=== PATIENT | female | born 1975 | race Caucasian/White ===

== ENCOUNTER 2017-01-16 10:01 | Emergency (ER) | payer SELFPAY ==
[~2017-01-16] VITALS: Ht 165.1 cm; Wt 119.3 kg
[2017-01-16] MEDS ORDERED: SODIUM CHLORIDE 0.9% 1,000 ML IV ONE ×2 (10:21→12:00)
[2017-01-16 11:09] LABS: BLOOD UREA NITROGEN 13 mg/dL (7-18)
[2017-01-16 11:12] LABS: ASPARTATE AMINO TRANSFERASE 10 U/L (15-37)
[2017-01-16 11:39] LABS: DIFF TOTAL CELLS COUNTED 100 CELL DIFF
[2017-01-16 11:40] LABS: HYPOCHROMIA 2+; MICROCYTOSIS 2+; POLYCHROMASIA 1+; VERIFY COUNTS? YES
[2017-01-16 11:41] LABS: ANISOCYTOSIS 2+
[2017-01-16] MEDS ORDERED: SODIUM CHLORIDE FLUSH 10ML SYR IVF ONE (12:00)
[2017-01-16] MEDS ORDERED: MORPHINE SULFATE 4 MG/ML, 1ML IVPush PRN (12:00)
[2017-01-16] MEDS ORDERED: ONDANSETRON 2MG/ML, 2ML IVPush ONE (12:00)
[2017-01-16] MEDS ORDERED: SODIUM CHLORIDE 0.9% 1,000ML IVBOLUS ONE (12:00)
[2017-01-16] MEDS ORDERED: ONDANSETRON 2MG/ML, 2ML ONE (12:40)
[2017-01-16] MEDS ORDERED: MORPHINE SULFATE 4 MG/ML, 1ML ONE (12:40)
[2017-01-16 12:46] VITALS: BP 120/77
== END 2017-01-16 15:24 | disposition home or self-care (01) ==
LOC: ED 11:32
DX: N30.00 Acute cystitis without hematuria (principal); D50.0 Iron deficiency anemia secondary to blood loss (chronic); N83.292 Other ovarian cyst, left side; E66.9 Obesity, unspecified; F17.200 Nicotine dependence, unspecified, uncomplicated; Z98.84 Bariatric surgery status
CPT/HCPCS: 36415; 70450; 71010; 76830; 80053; 81001; 83605; 83690; 83880; 84145; 85025; 85610; 85730; 87077; 87086; 87186; 93005; 96361; 96374; 96375; 99285; J2405; J7030

== ENCOUNTER 2021-01-21 22:22 | Emergency (ER) | payer MEDICAID ==
[~2021-01-21] VITALS: Ht 165.1 cm; Wt 100.0 kg
[~2021-01-21 22:22] MED LIST: AMOX1TAB12 PO; APIX5TAB PO; CEPH250T PO; ENOX120S4 SQ; GABA-826 PO; L.AC1CAP6 PO; NICO-485 TD; THIA100T67 PO; WARF7.5T PO-COUM
[2021-01-21 23:03] LABS: ALANINE AMINOTRANSFERASE 124 U/L (12-78); ALBUMIN 2.5 g/dL (3.4-5.0); ANION GAP 11 mmol/L (5-15); CALCIUM 8.6 mg/dL (8.5-10.1); CHLORIDE 102 mmol/L (98-107); CREATININE 0.74 mg/dL (0.55-1.02)
[2021-01-21 23:06] LABS: ALKALINE PHOSPHATASE 287 U/L (45-117); BASOPHILS % (AUTO) 1 % (0-1); BILIRUBIN,TOTAL 2.1 mg/dL (0.2-1.0); EOSINOPHILS % (AUTO) 4 % (1-7); LYMPHOCYTES % (AUTO) 20 % (22-44); MEAN CORPUSCULAR HEMOGLOBIN 33.7 pg (27.0-34.8); MEAN CORPUSCULAR HGB CONC 33.2 g/dL (32.4-35.8); MEAN PLATELET VOLUME 8.8 fL (7.4-10.4); MONOCYTES % (AUTO) 6 % (2-9); NEUTROPHILS % (AUTO) 69 % (42-75); PLATELET COUNT 285 x10^3/uL (130-400); RED BLOOD COUNT 3.75 x10^6/uL (3.82-5.3); RED CELL DISTRIBUTION WIDTH 20.3 % (9.6-15.2); TOTAL PROTEIN 6.2 g/dL (6.4-8.2)
[2021-01-21 23:23] LABS: <PLATELET ESTIMATE> ADEQUATE; <PLT MORPHOLOGY> NORMAL PLT MORPH; ANISOCYTOSIS 1+; POLYCHROMASIA 1+; TARGET CELLS 1+
[2021-01-22] MEDS ORDERED: KETOROLAC 60 MG/2 ML ONE (00:08)
[2021-01-22] MEDS ORDERED: KETOROLAC 60 MG/2 ML IM ONE (00:30)
[2021-01-22 01:50] VITALS: BP 133/78
--- NOTE | 2021-01-22 01:50 | NUR ---
BREAK RN: Patient given discharge instructions and they have confirmed that they understand the instructions. Patient ambulatory with steady gait. NAD, all questions answered appropriately, denies additional needs at this time. No personal belongings left in room after discharge.
== END 2021-01-22 01:51 | disposition home or self-care (01) ==
LOC: ED 23:30
DX: I89.0 Lymphedema, not elsewhere classified (principal); R94.5 Abnormal results of liver function studies; F17.210 Nicotine dependence, cigarettes, uncomplicated
CPT/HCPCS: 36415; 80053; 85025; 93970; 96372; 99284; J1885

== ENCOUNTER 2021-03-20 16:07 | Inpatient (IN) | payer MEDICAID ==
[~2021-03-20] VITALS: Ht 165.1 cm; Wt 148.4 kg
--- NOTE | 2021-03-20 16:37 | NUR ---
PT BIB EX VIA POV. PER PT SHE CAME IN TODAY FOR SOB AND BECAUSE "I FEEL LIKE I'M CONFUSED TODAY". PT 73% ON RA IN TRIAGE, PT PLACED ON 6L O2 NC, UP TO 95%. PT RESTING IN GURNEY, MONITORING IN PLACE, EKG DONE, WCTM. PT STATES HX OF PE.
[2021-03-20] MEDS ORDERED: ALBUTEROL/IPRATROPIUM 2.5MG/0.5MG, 3 ML ONE ×2 (16:53→18:46)
[2021-03-20] MEDS ORDERED: ALBUTEROL/IPRATROPIUM 2.5MG/0.5MG, 3 ML NPPB ONE ×2 (17:00→18:30)
[2021-03-20] MEDS ORDERED: SODIUM CHLORIDE FLUSH 10ML SYR IVF ONE (17:00)
[2021-03-20 17:17] LABS: BASOPHILS % (AUTO) 1 % (0-1); EOSINOPHILS % (AUTO) 1 % (1-7); LYMPHOCYTES % (AUTO) 25 % (22-44); MEAN CORPUSCULAR HEMOGLOBIN 35.6 pg (27.0-34.8); MEAN CORPUSCULAR HGB CONC 33.4 g/dL (32.4-35.8); MEAN PLATELET VOLUME 7.6 fL (7.4-10.4); MONOCYTES % (AUTO) 9 % (2-9); NEUTROPHILS % (AUTO) 64 % (42-75); PLATELET COUNT 121 x10^3/uL (130-400)
[2021-03-20 17:23] LABS: ALANINE AMINOTRANSFERASE 170 U/L (12-78); ALBUMIN 2.5 g/dL (3.4-5.0); ANION GAP 15 mmol/L (5-15); CALCIUM 8.6 mg/dL (8.5-10.1); CHLORIDE 98 mmol/L (98-107)
[2021-03-20 17:28] LABS: ALKALINE PHOSPHATASE 389 U/L (45-117); BILIRUBIN,TOTAL 2.6 mg/dL (0.2-1.0); CREATININE 0.43 mg/dL (0.55-1.02); TOTAL PROTEIN 6.6 g/dL (6.4-8.2); TROPONIN I < 0.015 ng/mL (0.000-0.045)
[2021-03-20 17:35] LABS: ANISOCYTOSIS 1+
[2021-03-20 17:36] LABS: <PLATELET ESTIMATE> DECREASED; <PLT MORPHOLOGY> NORMAL PLT MORPH
[2021-03-20 17:37] LABS: POLYCHROMASIA 1+
[2021-03-20] MEDS ORDERED: methylPREDNISolone SOD SUCC 125 MG/2 ML IV ONE (18:30)
[2021-03-20] MEDS ORDERED: methylPREDNISolone SOD SUCC 125 MG/2 ML ONE (18:45)
--- NOTE | 2021-03-20 18:58 | NUR ---
RECIEVED REPORT FROM ELEANOR MCLEAN
--- NOTE | 2021-03-20 19:00 | NUR ---
REPORT TO ELEANOR BABIN.
--- NOTE | 2021-03-20 19:09 | NUR ---
PATIENT DESAT DOWN TO 60%, O2 INCREASED TO 4L. PATIENT REMAINS SOB
[2021-03-20] MEDS ORDERED: MAGNESIUM SULFATE PMX 2GM/50ML 50 ML IVPB ONE (19:30)
[2021-03-20] MEDS ORDERED: SODIUM CHLORIDE FLUSH 10ML SYR IVF PRN (20:00)
[2021-03-20] MEDS ORDERED: BISACODYL 10 MG SUPP PR PRN (20:30)
[2021-03-20] MEDS ORDERED: POTASSIUM CHLORIDE 20 MEQ TAB.ER.PRT PO ONE (20:30)
[2021-03-20] MEDS ORDERED: ENOXAPARIN 40 MG/0.4 ML SQ SCH (20:30)
[2021-03-20] MEDS ORDERED: FUROSEMIDE 40 MG/4 ML IV ONE (20:30)
--- NOTE | 2021-03-20 21:18 | NUR ---
PATEINT TAKEN TO CT.
[2021-03-20] MEDS ORDERED: OMNIPAQUE 350 MG/ML, 100ML BOTTLE ONE (21:40)
--- NOTE | 2021-03-20 21:58 | NUR ---
HEAD BATCHER: REPORT CALLED TO FLOOR ARCENIO WEBSTER.
[2021-03-20] MEDS ORDERED: MAGNESIUM SULFATE PMX 2GM/50ML 50 ML IV ONE (23:00)
[2021-03-20] MEDS: PANTOPRAZOLE 40 MG IV IVPush SCH (23:04)
[2021-03-20 23:09] VITALS: BP 102/68
[2021-03-20 23:21] VITALS: BP 132/72
[2021-03-20] MEDS ORDERED: ALBUTEROL HFA 90 MCG/SPRAY INH PRN (23:30)
[2021-03-20 23:53] LABS: TROPONIN I < 0.015 ng/mL (0.000-0.045)
[2021-03-21 01:57] VITALS: BP 115/68
[2021-03-21 07:11] LABS: BASOPHILS % (AUTO) 1 % (0-1); EOSINOPHILS % (AUTO) 0 % (1-7); LYMPHOCYTES % (AUTO) 15 % (22-44); MEAN CORPUSCULAR HEMOGLOBIN 35.3 pg (27.0-34.8); MEAN CORPUSCULAR HGB CONC 33.2 g/dL (32.4-35.8); MEAN PLATELET VOLUME 7.6 fL (7.4-10.4); MONOCYTES % (AUTO) 6 % (2-9); NEUTROPHILS % (AUTO) 78 % (42-75); PLATELET COUNT 117 x10^3/uL (130-400); RED BLOOD COUNT 3.42 x10^6/uL (3.82-5.3); RED CELL DISTRIBUTION WIDTH 20.3 % (9.6-15.2)
[2021-03-21 07:19] VITALS: BP 93/60
[2021-03-21 07:19] LABS: CHLORIDE 98 mmol/L (98-107)
[2021-03-21 07:27] LABS: ALANINE AMINOTRANSFERASE 160 U/L (12-78); ALBUMIN 2.4 g/dL (3.4-5.0); ALKALINE PHOSPHATASE 382 U/L (45-117); ANION GAP 16 mmol/L (5-15); BILIRUBIN,TOTAL 2.8 mg/dL (0.2-1.0); CALCIUM 8.5 mg/dL (8.5-10.1); CREATININE 0.46 mg/dL (0.55-1.02); TOTAL PROTEIN 6.2 g/dL (6.4-8.2); TROPONIN I < 0.015 ng/mL (0.000-0.045)
[2021-03-21] MEDS ORDERED: methylPREDNISolone SOD SUCC 40 MG/ML IV SCH (08:00)
[2021-03-21] MEDS: GUAIFENESIN/DM 200-20MG, 10ML UDC PO PRN ×2 (10:54→21:22)
[2021-03-21] MEDS ORDERED: DIAZEPAM 5 MG TABLET ONE (11:14)
[2021-03-21] MEDS: DIAZEPAM 5 MG TABLET PO PRN ×2 (11:19→21:22)
[2021-03-21] MEDS ORDERED: DIAZEPAM ELIXIR 1 MG/ML PO PRN (11:30)
[2021-03-21 13:31] VITALS: BP 114/73
[2021-03-21] MEDS ORDERED: CYANOCOBALAMIN 1,000 MCG/ML, 1ML IM ONE (15:00)
[2021-03-21] MEDS: methylPREDNISolone SOD SUCC 125 MG/2 ML IVPush SCH ×2 (15:10→21:21)
[2021-03-21] MEDS: ASCORBIC ACID 500 MG TABLET PO SCH (15:10)
[2021-03-21] MEDS ORDERED: REMDESIVIR 200 MG in SODIUM CHLORIDE 0.9% 250 ML IVPB ONE (17:00)
[2021-03-21] MEDS: ENOXAPARIN 60 MG/0.6 ML SQ SCH (19:30)
[2021-03-21 19:49] VITALS: BP 108/71
[2021-03-21] MEDS: PANTOPRAZOLE 40 MG IV IVPush SCH (21:21)
[2021-03-21] MEDS: MELATONIN 5 MG TABLET PO PRN (21:22)
[2021-03-22 00:48] VITALS: BP 114/73
[2021-03-22] MEDS: methylPREDNISolone SOD SUCC 125 MG/2 ML IVPush SCH ×4 (03:52→21:07)
[2021-03-22 05:32] LABS: ALANINE AMINOTRANSFERASE 161 U/L (12-78); ALBUMIN 2.6 g/dL (3.4-5.0); ANION GAP 11 mmol/L (5-15); CALCIUM 8.6 mg/dL (8.5-10.1); CHLORIDE 100 mmol/L (98-107); CREATININE 0.43 mg/dL (0.55-1.02)
[2021-03-22 05:35] LABS: ALKALINE PHOSPHATASE 416 U/L (45-117); BILIRUBIN,TOTAL 2.5 mg/dL (0.2-1.0); TOTAL PROTEIN 6.6 g/dL (6.4-8.2)
[2021-03-22] MEDS: ENOXAPARIN 60 MG/0.6 ML SQ SCH ×2 (07:30→21:07)
[2021-03-22 08:23] VITALS: BP 120/81
[2021-03-22] MEDS ORDERED: CHOLECALCIFEROL 5,000u TAB PO SCH (09:00)
[2021-03-22] MEDS: FLUTICASONE/VILANTEROL 100-25MCG/INH INH SCH (09:00)
[2021-03-22] MEDS: ASCORBIC ACID 500 MG TABLET PO SCH ×2 (09:37→15:54)
[2021-03-22] MEDS: MULTIVITS,STRESS FORMULA 1 TABLET PO SCH (09:38)
[2021-03-22] MEDS: ZINC SULFATE 220 MG CAPSULE PO SCH (09:38)
[2021-03-22] MEDS: DIAZEPAM 5 MG TABLET PO PRN ×2 (09:57→18:19)
[2021-03-22] MEDS ORDERED: CHOLECALCIFEROL 1,000 UNIT TABLET PO SCH (12:00)
[2021-03-22] MEDS: REMDESIVIR 100 MG in SODIUM CHLORIDE 0.9% 250 ML IVPB SCH (18:19)
[2021-03-22 19:47] VITALS: BP 104/68
[2021-03-22] MEDS: PANTOPRAZOLE 40 MG IV IVPush SCH (21:06)
[2021-03-22] MEDS: MELATONIN 5 MG TABLET PO PRN (21:07)
[2021-03-22] MEDS: GUAIFENESIN/DM 200-20MG, 10ML UDC PO PRN (21:07)
[2021-03-23] MEDS: methylPREDNISolone SOD SUCC 125 MG/2 ML IVPush SCH ×4 (02:18→20:15)
[2021-03-23 02:20] VITALS: BP 119/79
[2021-03-23] MEDS: DIAZEPAM 5 MG TABLET PO PRN ×2 (03:49→09:55)
[2021-03-23 06:20] LABS: ALANINE AMINOTRANSFERASE 180 U/L (12-78); ALBUMIN 2.6 g/dL (3.4-5.0); ANION GAP 8 mmol/L (5-15); CALCIUM 8.4 mg/dL (8.5-10.1); CHLORIDE 100 mmol/L (98-107); CREATININE 0.58 mg/dL (0.55-1.02)
[2021-03-23 06:23] LABS: ALKALINE PHOSPHATASE 414 U/L (45-117); BILIRUBIN,TOTAL 2.4 mg/dL (0.2-1.0); TOTAL PROTEIN 6.7 g/dL (6.4-8.2)
[2021-03-23] MEDS: ENOXAPARIN 60 MG/0.6 ML SQ SCH ×2 (07:59→19:30)
[2021-03-23] MEDS: ZINC SULFATE 220 MG CAPSULE PO SCH (08:00)
[2021-03-23] MEDS: CHOLECALCIFEROL 5,000u TAB PO SCH (08:00)
[2021-03-23] MEDS: MULTIVITS,STRESS FORMULA 1 TABLET PO SCH (08:00)
[2021-03-23] MEDS: ASCORBIC ACID 500 MG TABLET PO SCH ×2 (08:00→16:31)
[2021-03-23 08:18] VITALS: BP 124/80
[2021-03-23] MEDS: FLUTICASONE/VILANTEROL 100-25MCG/INH INH SCH (09:00)
[2021-03-23] MEDS ORDERED: LORazepam 2 MG/ML, 1ML IV PRN ×5 (10:30)
[2021-03-23] MEDS ORDERED: LORazepam 0.5MG TABLET PO PRN (10:30)
[2021-03-23] MEDS ORDERED: LORazepam 1MG TABLET PO PRN ×2 (10:30)
[2021-03-23 13:01] VITALS: BP 141/94
[2021-03-23] MEDS: LORazepam 1MG TABLET PO PRN ×3 (13:59→20:16)
[2021-03-23 14:58] VITALS: BP 125/85
[2021-03-23] MEDS: REMDESIVIR 100 MG in SODIUM CHLORIDE 0.9% 250 ML IVPB SCH (16:31)
[2021-03-23] MEDS: PANTOPRAZOLE 40 MG IV IVPush SCH (20:15)
[2021-03-23] MEDS: MELATONIN 5 MG TABLET PO PRN (20:16)
[2021-03-23 20:20] VITALS: BP 117/79
[2021-03-24] VITALS (12 sets, daily range): BP systolic 125–157; BP diastolic 76–99
[2021-03-24] MEDS: LORazepam 1MG TABLET PO PRN ×3 (01:38→13:49)
[2021-03-24] MEDS: methylPREDNISolone SOD SUCC 125 MG/2 ML IVPush SCH ×4 (03:03→20:18)
[2021-03-24 06:16] LABS: ALANINE AMINOTRANSFERASE 188 U/L (12-78); ALBUMIN 2.7 g/dL (3.4-5.0); ANION GAP 7 mmol/L (5-15); CALCIUM 8.3 mg/dL (8.5-10.1); CHLORIDE 98 mmol/L (98-107); CREATININE 0.37 mg/dL (0.55-1.02)
[2021-03-24 06:19] LABS: ALKALINE PHOSPHATASE 402 U/L (45-117); BILIRUBIN,TOTAL 2.9 mg/dL (0.2-1.0); TOTAL PROTEIN 6.9 g/dL (6.4-8.2)
[2021-03-24] MEDS ORDERED: CHLORDIAZEPOXIDE 25 MG CAPSULE PO SCH (08:30)
[2021-03-24] MEDS: ZINC SULFATE 220 MG CAPSULE PO SCH (09:56)
[2021-03-24] MEDS: CHOLECALCIFEROL 5,000u TAB PO SCH (09:57)
[2021-03-24] MEDS: MULTIVITS,STRESS FORMULA 1 TABLET PO SCH (09:57)
[2021-03-24] MEDS: ASCORBIC ACID 500 MG TABLET PO SCH ×2 (09:57→16:17)
[2021-03-24] MEDS: DIAZEPAM 5 MG TABLET PO SCH ×2 (10:04→15:26)
[2021-03-24] MEDS: FLUTICASONE/VILANTEROL 100-25MCG/INH INH SCH (10:04)
[2021-03-24] MEDS ORDERED: PROPOFOL 10 MG/ML, 100ML IV ONE (10:58)
[2021-03-24] MEDS ORDERED: ETOMIDATE 20 MG/10 ML ONE (10:58)
[2021-03-24] MEDS ORDERED: MIDAZOLAM 1 MG/ML, 5ML ONE (10:58)
[2021-03-24] MEDS: ENOXAPARIN 60 MG/0.6 ML SQ SCH ×2 (12:10→20:17)
[2021-03-24] MEDS: REMDESIVIR 100 MG in SODIUM CHLORIDE 0.9% 250 ML IVPB SCH (16:17)
[2021-03-24] MEDS ORDERED: FUROSEMIDE 40 MG/4 ML IV ONE (16:30)
[2021-03-24 17:29] LABS: MEAN CORPUSCULAR HEMOGLOBIN 34.8 pg (27.0-34.8); MEAN CORPUSCULAR HGB CONC 31.5 g/dL (32.4-35.8); MEAN PLATELET VOLUME 8.6 fL (7.4-10.4); PLATELET COUNT 190 x10^3/uL (130-400); RED BLOOD COUNT 4.16 x10^6/uL (3.82-5.3); RED CELL DISTRIBUTION WIDTH 20.4 % (9.6-15.2)
[2021-03-24 17:38] LABS: ANION GAP 8 mmol/L (5-15); CALCIUM 8.1 mg/dL (8.5-10.1); CHLORIDE 97 mmol/L (98-107); CREATININE 0.74 mg/dL (0.55-1.02)
[2021-03-24 17:52] LABS: ANISOCYTOSIS 1+; LYMPH#(MANUAL) 1.69 x10^3/uL (1-3.4); LYMPHS% (MANUAL) 13 % (22-44); MONOS#(MANUAL) 0.78 x10^3/uL (0.3-2.7); MONOS% (MANUAL) 6 % (2-9); POLYCHROMASIA 1+; SEG#(MANUAL) 10.53 x10^3/uL (1.8-6.8); SEGS% (MANUAL) 81 % (42-75); TEAR DROPS 1+
[2021-03-24 17:53] LABS: <PLATELET ESTIMATE> DECREASED; <PLT MORPHOLOGY> NORMAL PLT MORPH
[2021-03-24] MEDS ORDERED: DEXMEDETOMIDINE 400 MCG in SODIUM CHLORIDE 0.9% 96 ML IV PRN (18:00)
[2021-03-24] MEDS ORDERED: SODIUM CHLORIDE 0.9% IV ONE (19:00)
[2021-03-24] MEDS ORDERED: PHENOBARBITAL SODIUM IV ONE (19:00)
[2021-03-24] MEDS ORDERED: FUROSEMIDE 20 MG/2 ML IV ONE (20:30)
[2021-03-24] MEDS ORDERED: PANTOPRAZOLE 40MG TABLET PO SCH (21:00)
[2021-03-24] MEDS: FOLIC ACID 1 MG TABLET PO SCH (21:00)
[2021-03-24] MEDS: THIAMINE 100MG TABLET PO SCH (21:00)
[2021-03-24] MEDS: PROPOFOL 100 ML IV PRN (22:15)
[2021-03-24] MEDS ORDERED: SODIUM CHLORIDE 0.9%, 500ML IVBOLUS ONE ×2 (22:30→23:00)
[2021-03-24] MEDS: PHENYLEPHRINE 50 MG in SODIUM CHLORIDE 0.9% 245 ML IV PRN (23:36)
[2021-03-25] MEDS: methylPREDNISolone SOD SUCC 125 MG/2 ML IVPush SCH (02:56)
[2021-03-25] MEDS: MIDAZOLAM HCL 50 MG in SODIUM CHLORIDE 0.9% 40 ML IV PRN ×2 (02:57→15:38)
[2021-03-25 03:18] LABS: MICROSCOPIC INDICATED
[2021-03-25] MEDS: PHENYLEPHRINE 50 MG in SODIUM CHLORIDE 0.9% 245 ML IV PRN ×3 (04:22→20:48)
[2021-03-25] MEDS: PROPOFOL 100 ML IV PRN ×4 (04:23→22:40)
[2021-03-25 04:36] LABS: MEAN CORPUSCULAR HEMOGLOBIN 35.3 pg (27.0-34.8); MEAN CORPUSCULAR HGB CONC 32.4 g/dL (32.4-35.8); MEAN PLATELET VOLUME 8.2 fL (7.4-10.4); PLATELET COUNT 161 x10^3/uL (130-400); RED BLOOD COUNT 3.74 x10^6/uL (3.82-5.3); RED CELL DISTRIBUTION WIDTH 20.1 % (9.6-15.2)
[2021-03-25 04:45] LABS: ALANINE AMINOTRANSFERASE 206 U/L (12-78); ALBUMIN 2.3 g/dL (3.4-5.0); ANION GAP 10 mmol/L (5-15); CALCIUM 7.6 mg/dL (8.5-10.1); CHLORIDE 100 mmol/L (98-107); CREATININE 0.87 mg/dL (0.55-1.02)
[2021-03-25 04:51] LABS: ALKALINE PHOSPHATASE 362 U/L (45-117); BILIRUBIN,TOTAL 4.9 mg/dL (0.2-1.0); TOTAL PROTEIN 5.8 g/dL (6.4-8.2)
[2021-03-25 05:39] LABS: HCT (SEDRATE) 40.7 % (34.6-47.8)
[2021-03-25 05:47] LABS: BAND#(MANUAL) 1.87 x10^3/uL; BANDS%(MANUAL) 13 % (0-7); LYMPH#(MANUAL) 0.58 x10^3/uL (1-3.4); LYMPHS% (MANUAL) 4 % (22-44); MONOS#(MANUAL) 0.43 x10^3/uL (0.3-2.7); MONOS% (MANUAL) 3 % (2-9); MYELOCYTES# (MANUAL) 0.29 x10^3/uL (0-0); MYELOCYTES% (MANUAL) 2 % (0-0); SEG#(MANUAL) 11.23 x10^3/uL (1.8-6.8); SEGS% (MANUAL) 78 % (42-75)
[2021-03-25 05:48] LABS: ANISOCYTOSIS 1+; POLYCHROMASIA 1+
[2021-03-25 05:49] LABS: <PLATELET ESTIMATE> ADEQUATE; <PLT MORPHOLOGY> NORMAL PLT MORPH; PMNS WITH VACUOLES 1+; TOXIC GRAN 1+
[2021-03-25] MEDS: CEFTRIAXONE 2 GM in DEXTROSE 5% 50 ML IVPB SCH (06:39)
[2021-03-25] MEDS ORDERED: PANTOPRAZOLE 40 MG IV IVPush SCH (09:00)
[2021-03-25] MEDS: FLUTICASONE/VILANTEROL 100-25MCG/INH INH SCH (09:00)
[2021-03-25] MEDS ORDERED: ASCORBIC ACID 250 MG TAB ONE (09:15)
[2021-03-25] MEDS: THIAMINE 100MG TABLET PO SCH (09:28)
[2021-03-25] MEDS: DEXAMETHASONE 4 MG/ML, 1ML IVPush SCH (09:28)
[2021-03-25] MEDS: ASCORBIC ACID 500 MG TABLET PO SCH ×2 (09:28→17:26)
[2021-03-25] MEDS: ZINC SULFATE 220 MG CAPSULE PO SCH (09:29)
[2021-03-25] MEDS: MULTIVITS,STRESS FORMULA 1 TABLET PO SCH (09:29)
[2021-03-25] MEDS: FOLIC ACID 1 MG TABLET PO SCH (09:29)
[2021-03-25] MEDS: CHOLECALCIFEROL 5,000u TAB PO SCH (09:29)
[2021-03-25] MEDS: ENOXAPARIN 60 MG/0.6 ML SQ SCH ×2 (09:30→19:52)
[2021-03-25] MEDS: metroNIDAZOLE 500 MG TABLET PO SCH ×2 (10:48→17:26)
[2021-03-25] MEDS: REMDESIVIR 100 MG in SODIUM CHLORIDE 0.9% 250 ML IVPB SCH (17:26)
[2021-03-26] MEDS: metroNIDAZOLE 500 MG TABLET PO SCH ×3 (00:07→16:38)
[2021-03-26] MEDS: MIDAZOLAM HCL 50 MG in SODIUM CHLORIDE 0.9% 40 ML IV PRN ×3 (00:07→19:46)
[2021-03-26] MEDS: PROPOFOL 100 ML IV PRN ×4 (02:52→21:37)
[2021-03-26 03:08] LABS: MEAN CORPUSCULAR HEMOGLOBIN 34.6 pg (27.0-34.8); MEAN CORPUSCULAR HGB CONC 32.1 g/dL (32.4-35.8); PLATELET COUNT 122 x10^3/uL (130-400); RED BLOOD COUNT 3.61 x10^6/uL (3.82-5.3); RED CELL DISTRIBUTION WIDTH 20.3 % (9.6-15.2)
[2021-03-26 03:17] LABS: ANION GAP 6 mmol/L (5-15); CHLORIDE 101 mmol/L (98-107)
[2021-03-26 03:58] LABS: ANISOCYTOSIS 1+; BAND#(MANUAL) 0.69 x10^3/uL; BANDS%(MANUAL) 6 % (0-7); LYMPH#(MANUAL) 1.04 x10^3/uL (1-3.4); LYMPHS% (MANUAL) 9 % (22-44); METAMYELOCYTES# (MANUAL) 0.12 x10^3/uL (0-0); METAMYELOCYTES% (MANUAL) 1 % (0-1); MONOS#(MANUAL) 0.58 x10^3/uL (0.3-2.7); MONOS% (MANUAL) 5 % (2-9); MYELOCYTES# (MANUAL) 0.12 x10^3/uL (0-0); MYELOCYTES% (MANUAL) 1 % (0-0); POLYCHROMASIA 1+; SEG#(MANUAL) 8.97 x10^3/uL (1.8-6.8); SEGS% (MANUAL) 78 % (42-75); STOMATOCYTES 1+; TARGET CELLS 1+; TEAR DROPS 1+
[2021-03-26 03:59] LABS: <PLATELET ESTIMATE> DECREASED; <PLT MORPHOLOGY> NORMAL PLT MORPH; PMNS WITH VACUOLES 1+
[2021-03-26] MEDS: PHENYLEPHRINE 50 MG in SODIUM CHLORIDE 0.9% 245 ML IV PRN ×2 (04:20→15:06)
[2021-03-26] MEDS: PANTOPRAZOLE 40 MG IV IVPush SCH (06:11)
[2021-03-26] MEDS: CEFTRIAXONE 2 GM in DEXTROSE 5% 50 ML IVPB SCH (06:11)
[2021-03-26] MEDS: FLUTICASONE/VILANTEROL 100-25MCG/INH INH SCH (09:00)
[2021-03-26] MEDS: ASCORBIC ACID 500 MG TABLET PO SCH ×2 (09:39→16:38)
[2021-03-26] MEDS: ZINC SULFATE 220 MG CAPSULE PO SCH (09:39)
[2021-03-26] MEDS: FOLIC ACID 1 MG TABLET PO SCH (09:39)
[2021-03-26] MEDS: ENOXAPARIN 60 MG/0.6 ML SQ SCH ×2 (09:40→19:29)
[2021-03-26] MEDS: THIAMINE 100MG TABLET PO SCH (09:40)
[2021-03-26] MEDS: FUROSEMIDE 20 MG/2 ML IV SCH ×2 (09:40→16:39)
[2021-03-26] MEDS: DEXAMETHASONE 4 MG/ML, 1ML IVPush SCH (09:40)
[2021-03-26] MEDS: MULTIVITS,STRESS FORMULA 1 TABLET PO SCH (09:40)
[2021-03-26] MEDS: CHOLECALCIFEROL 5,000u TAB PO SCH (09:40)
[2021-03-26] MEDS: ERGOCALCIFEROL 50,000 UNIT CAPSULE PO SCH (16:38)
[2021-03-27] MEDS: metroNIDAZOLE 500 MG TABLET PO SCH ×3 (01:31→16:20)
[2021-03-27] MEDS: PROPOFOL 100 ML IV PRN ×5 (01:37→20:13)
[2021-03-27] MEDS: PHENYLEPHRINE 50 MG in SODIUM CHLORIDE 0.9% 245 ML IV PRN ×2 (02:53→17:29)
[2021-03-27 04:00] LABS: MEAN CORPUSCULAR HEMOGLOBIN 35.1 pg (27.0-34.8); MEAN CORPUSCULAR HGB CONC 32.5 g/dL (32.4-35.8); MEAN PLATELET VOLUME 8.9 fL (7.4-10.4); PLATELET COUNT 146 x10^3/uL (130-400); RED CELL DISTRIBUTION WIDTH 19.8 % (9.6-15.2)
[2021-03-27 04:07] LABS: ANION GAP 5 mmol/L (5-15); CALCIUM 7.8 mg/dL (8.5-10.1); CHLORIDE 101 mmol/L (98-107)
[2021-03-27 04:24] LABS: ANISOCYTOSIS 1+; BAND#(MANUAL) 0.45 x10^3/uL; BANDS%(MANUAL) 4 % (0-7); LYMPH#(MANUAL) 2.24 x10^3/uL (1-3.4); LYMPHS% (MANUAL) 20 % (22-44); METAMYELOCYTES# (MANUAL) 0.34 x10^3/uL (0-0); METAMYELOCYTES% (MANUAL) 3 % (0-1); MONOS#(MANUAL) 0.45 x10^3/uL (0.3-2.7); MONOS% (MANUAL) 4 % (2-9); MYELOCYTES# (MANUAL) 0.34 x10^3/uL (0-0); MYELOCYTES% (MANUAL) 3 % (0-0); POLYCHROMASIA 1+; SEG#(MANUAL) 7.39 x10^3/uL (1.8-6.8); SEGS% (MANUAL) 66 % (42-75)
[2021-03-27 04:25] LABS: <PLATELET ESTIMATE> ADEQUATE; <PLT MORPHOLOGY> NORMAL PLT MORPH; PMNS WITH VACUOLES 1+; STOMATOCYTES 1+; TARGET CELLS 1+; TEAR DROPS 1+
[2021-03-27] MEDS: CEFTRIAXONE 2 GM in DEXTROSE 5% 50 ML IVPB SCH (06:26)
[2021-03-27] MEDS: PANTOPRAZOLE 40 MG IV IVPush SCH (06:26)
[2021-03-27] MEDS: ASCORBIC ACID 500 MG TABLET PO SCH ×2 (07:50→16:19)
[2021-03-27] MEDS: CHOLECALCIFEROL 5,000u TAB PO SCH (07:50)
[2021-03-27] MEDS: THIAMINE 100MG TABLET PO SCH (07:50)
[2021-03-27] MEDS: ZINC SULFATE 220 MG CAPSULE PO SCH (07:50)
[2021-03-27] MEDS: MULTIVITS,STRESS FORMULA 1 TABLET PO SCH (07:50)
[2021-03-27] MEDS: FOLIC ACID 1 MG TABLET PO SCH (07:50)
[2021-03-27] MEDS: FUROSEMIDE 20 MG/2 ML IV SCH (07:51)
[2021-03-27] MEDS: DEXAMETHASONE 4 MG/ML, 1ML IVPush SCH ×3 (07:51→20:48)
[2021-03-27] MEDS: ENOXAPARIN 60 MG/0.6 ML SQ SCH ×2 (07:51→19:18)
[2021-03-27] MEDS: FLUTICASONE/VILANTEROL 100-25MCG/INH INH SCH (09:00)
--- NOTE | 2021-03-27 12:34 | NUR ---
TF per RD: Vital HP 60mL/hr ON propofol, 70 ml/hr OFF propofol. Addendum: 03/27/21 at [address] Amended: Links added.
[2021-03-27] MEDS: MIDAZOLAM HCL 50 MG in SODIUM CHLORIDE 0.9% 40 ML IV PRN (13:40)
[2021-03-27] MEDS ORDERED: LACTULOSE 20 GM/30 ML UDC PO PRN (21:00)
[2021-03-27] MEDS ORDERED: LACTULOSE 20 GM/30 ML UDC ONE (21:00)
[2021-03-27] MEDS: SENNA 176 MG/5 ML ORAL SOL NG SCH (21:15)
[2021-03-28] MEDS: PROPOFOL 100 ML IV PRN ×2 (00:11→04:52)
[2021-03-28] MEDS: metroNIDAZOLE 500 MG TABLET PO SCH ×4 (01:21→16:50)
[2021-03-28] MEDS: DEXAMETHASONE 4 MG/ML, 1ML IVPush SCH ×4 (02:43→20:03)
[2021-03-28 03:05] LABS: MEAN CORPUSCULAR HEMOGLOBIN 35.2 pg (27.0-34.8); MEAN CORPUSCULAR HGB CONC 32.2 g/dL (32.4-35.8); MEAN PLATELET VOLUME 8.9 fL (7.4-10.4); PLATELET COUNT 139 x10^3/uL (130-400); RED BLOOD COUNT 3.51 x10^6/uL (3.82-5.3)
[2021-03-28 03:12] LABS: ANION GAP 6 mmol/L (5-15); CALCIUM 8.2 mg/dL (8.5-10.1); CHLORIDE 100 mmol/L (98-107)
[2021-03-28 03:24] LABS: BAND#(MANUAL) 0.23 x10^3/uL; BANDS%(MANUAL) 3 % (0-7); LYMPH#(MANUAL) 0.55 x10^3/uL (1-3.4); LYMPHS% (MANUAL) 7 % (22-44); METAMYELOCYTES# (MANUAL) 0.23 x10^3/uL (0-0); METAMYELOCYTES% (MANUAL) 3 % (0-1); MONOS#(MANUAL) 1.01 x10^3/uL (0.3-2.7); MONOS% (MANUAL) 13 % (2-9); MYELOCYTES# (MANUAL) 0.08 x10^3/uL (0-0); MYELOCYTES% (MANUAL) 1 % (0-0); SEG#(MANUAL) 5.69 x10^3/uL (1.8-6.8); SEGS% (MANUAL) 73 % (42-75)
[2021-03-28 03:25] LABS: ANISOCYTOSIS 1+; POLYCHROMASIA 1+
[2021-03-28 03:27] LABS: <PLATELET ESTIMATE> DECREASED; <PLT MORPHOLOGY> NORMAL PLT MORPH; PMNS WITH VACUOLES 1+
[2021-03-28] MEDS: PANTOPRAZOLE 40 MG IV IVPush SCH (06:04)
[2021-03-28] MEDS: CEFTRIAXONE 2 GM in DEXTROSE 5% 50 ML IVPB SCH (06:04)
[2021-03-28] MEDS: DEXMEDETOMIDINE 400 MCG in SODIUM CHLORIDE 0.9% 96 ML IV PRN ×3 (06:50→17:23)
[2021-03-28] MEDS ORDERED: ASCORBIC ACID 250 MG TAB ONE (07:24)
[2021-03-28] MEDS: ENOXAPARIN 60 MG/0.6 ML SQ SCH ×2 (07:43→19:14)
[2021-03-28] MEDS: FOLIC ACID 1 MG TABLET PO SCH (07:43)
[2021-03-28] MEDS: ZINC SULFATE 220 MG CAPSULE PO SCH (07:44)
[2021-03-28] MEDS: THIAMINE 100MG TABLET PO SCH (07:44)
[2021-03-28] MEDS: CHOLECALCIFEROL 5,000u TAB PO SCH (07:44)
[2021-03-28] MEDS: MULTIVITS,STRESS FORMULA 1 TABLET PO SCH (07:44)
[2021-03-28] MEDS: FUROSEMIDE 20 MG/2 ML IV SCH (07:44)
[2021-03-28] MEDS: DOCUSATE 50 MG/5 ML, 10ML UDC NG SCH (07:44)
[2021-03-28] MEDS: ASCORBIC ACID 500 MG TABLET PO SCH ×2 (07:45→16:50)
[2021-03-28] MEDS: FLUTICASONE/VILANTEROL 100-25MCG/INH INH SCH (09:00)
[2021-03-28] MEDS: AMPICILLIN/SULBACTAM 3 GM in SODIUM CHLORIDE 0.9% 100 ML IV SCH ×3 (11:03→21:03)
[2021-03-28] MEDS: SENNA 176 MG/5 ML ORAL SOL NG SCH (20:03)
[2021-03-28] MEDS: DEXMEDETOMIDINE 1,000 MCG in SODIUM CHLORIDE 0.9% 240 ML IV PRN (21:30)
[2021-03-29] MEDS: metroNIDAZOLE 500 MG TABLET PO SCH ×3 (00:19→17:16)
[2021-03-29] MEDS: DEXAMETHASONE 4 MG/ML, 1ML IVPush SCH ×4 (02:40→21:27)
[2021-03-29] MEDS: AMPICILLIN/SULBACTAM 3 GM in SODIUM CHLORIDE 0.9% 100 ML IV SCH ×4 (02:41→21:26)
[2021-03-29 03:34] LABS: BASOPHILS % (AUTO) 1 % (0-1); EOSINOPHILS % (AUTO) 1 % (1-7); LYMPHOCYTES % (AUTO) 8 % (22-44); MEAN CORPUSCULAR HEMOGLOBIN 35.2 pg (27.0-34.8); MEAN CORPUSCULAR HGB CONC 32.8 g/dL (32.4-35.8); MONOCYTES % (AUTO) 14 % (2-9); NEUTROPHILS % (AUTO) 77 % (42-75); PLATELET COUNT 188 x10^3/uL (130-400); RED BLOOD COUNT 3.91 x10^6/uL (3.82-5.3); RED CELL DISTRIBUTION WIDTH 20.2 % (9.6-15.2)
[2021-03-29 03:42] LABS: CALCIUM 8.4 mg/dL (8.5-10.1); CREATININE 0.65 mg/dL (0.55-1.02); TRIGLYCERIDES 154 mg/dL (50-200)
[2021-03-29 03:55] LABS: CHLORIDE 99 mmol/L (98-107)
[2021-03-29 03:57] LABS: ANION GAP 6 mmol/L (5-15)
[2021-03-29] MEDS: PANTOPRAZOLE 40 MG IV IVPush SCH (06:13)
[2021-03-29] MEDS: PHENYLEPHRINE 50 MG in SODIUM CHLORIDE 0.9% 245 ML IV PRN (08:01)
[2021-03-29] MEDS: DOCUSATE 50 MG/5 ML, 10ML UDC NG SCH (08:02)
[2021-03-29] MEDS: DEXMEDETOMIDINE 1,000 MCG in SODIUM CHLORIDE 0.9% 240 ML IV PRN ×2 (08:02→21:26)
[2021-03-29] MEDS: ASCORBIC ACID 500 MG TABLET PO SCH ×2 (08:03→17:16)
[2021-03-29] MEDS: ZINC SULFATE 220 MG CAPSULE PO SCH (08:03)
[2021-03-29] MEDS: MULTIVITS,STRESS FORMULA 1 TABLET PO SCH (08:03)
[2021-03-29] MEDS: THIAMINE 100MG TABLET PO SCH (08:03)
[2021-03-29] MEDS: FOLIC ACID 1 MG TABLET PO SCH (08:03)
[2021-03-29] MEDS: ENOXAPARIN 60 MG/0.6 ML SQ SCH ×2 (08:04→20:17)
[2021-03-29] MEDS: CHOLECALCIFEROL 5,000u TAB PO SCH (08:04)
[2021-03-29] MEDS: MIDODRINE 5 MG TABLET PO SCH ×3 (10:57→21:26)
[2021-03-29] MEDS: FLUTICASONE/VILANTEROL 100-25MCG/INH INH SCH (19:50)
[2021-03-30] MEDS: metroNIDAZOLE 500 MG TABLET PO SCH ×3 (01:18→16:42)
[2021-03-30] MEDS: DEXAMETHASONE 4 MG/ML, 1ML IVPush SCH ×3 (03:15→20:34)
[2021-03-30] MEDS: AMPICILLIN/SULBACTAM 3 GM in SODIUM CHLORIDE 0.9% 100 ML IV SCH ×4 (03:16→23:52)
[2021-03-30 04:24] LABS: MEAN CORPUSCULAR HEMOGLOBIN 34.6 pg (27.0-34.8); MEAN CORPUSCULAR HGB CONC 32.4 g/dL (32.4-35.8); MEAN PLATELET VOLUME 9.8 fL (7.4-10.4); PLATELET COUNT 201 x10^3/uL (130-400); RED BLOOD COUNT 3.77 x10^6/uL (3.82-5.3); RED CELL DISTRIBUTION WIDTH 19.6 % (9.6-15.2)
[2021-03-30 04:26] LABS: ANION GAP 3 mmol/L (5-15); CALCIUM 8.8 mg/dL (8.5-10.1); CHLORIDE 100 mmol/L (98-107); CREATININE 0.58 mg/dL (0.55-1.02)
[2021-03-30 04:48] LABS: ANISOCYTOSIS 1+; BAND#(MANUAL) 0.33 x10^3/uL; BANDS%(MANUAL) 3 % (0-7); LYMPH#(MANUAL) 1.11 x10^3/uL (1-3.4); LYMPHS% (MANUAL) 10 % (22-44); METAMYELOCYTES# (MANUAL) 0.22 x10^3/uL (0-0); METAMYELOCYTES% (MANUAL) 2 % (0-1); MONOS#(MANUAL) 1.44 x10^3/uL (0.3-2.7); MONOS% (MANUAL) 13 % (2-9); POLYCHROMASIA 1+; SEG#(MANUAL) 7.99 x10^3/uL (1.8-6.8); SEGS% (MANUAL) 72 % (42-75); TARGET CELLS 1+
[2021-03-30 04:49] LABS: <PLATELET ESTIMATE> ADEQUATE; <PLT MORPHOLOGY> NORMAL PLT MORPH; PMNS WITH VACUOLES 1+; STOMATOCYTES 1+
[2021-03-30] MEDS: PANTOPRAZOLE 40 MG IV IVPush SCH (06:05)
[2021-03-30 07:44] LABS: ALBUMIN 1.9 g/dL (3.4-5.0); BILIRUBIN, DIRECT 3.6 mg/dL (0.1-0.2)
[2021-03-30 07:46] LABS: BILIRUBIN,INDIRECT 0.8 mg/dL (0.0-2.0); BILIRUBIN,TOTAL 4.4 mg/dL (0.2-1.0); TOTAL PROTEIN 5.5 g/dL (6.4-8.2)
[2021-03-30] MEDS: MULTIVITS,STRESS FORMULA 1 TABLET PO SCH (08:11)
[2021-03-30] MEDS: ENOXAPARIN 60 MG/0.6 ML SQ SCH ×2 (08:11→20:35)
[2021-03-30] MEDS: FOLIC ACID 1 MG TABLET PO SCH (08:11)
[2021-03-30] MEDS: ASCORBIC ACID 500 MG TABLET PO SCH ×2 (08:11→16:42)
[2021-03-30] MEDS: CHOLECALCIFEROL 5,000u TAB PO SCH (08:12)
[2021-03-30] MEDS: MIDODRINE 5 MG TABLET PO SCH ×3 (08:12→20:34)
[2021-03-30] MEDS: THIAMINE 100MG TABLET PO SCH (08:13)
[2021-03-30] MEDS: ZINC SULFATE 220 MG CAPSULE PO SCH (08:14)
[2021-03-30] MEDS: DOCUSATE 50 MG/5 ML, 10ML UDC NG SCH (08:14)
[2021-03-30] MEDS ORDERED: DEXAMETHASONE 4 MG/ML, 1ML ONE (09:15)
[2021-03-30] MEDS: FLUTICASONE/VILANTEROL 100-25MCG/INH INH SCH (15:02)
[2021-03-30] MEDS: MELATONIN 5 MG TABLET PO PRN (23:52)
[2021-03-31] MEDS: metroNIDAZOLE 500 MG TABLET PO SCH ×3 (01:10→17:53)
[2021-03-31 03:43] LABS: MEAN CORPUSCULAR HEMOGLOBIN 34.8 pg (27.0-34.8); MEAN CORPUSCULAR HGB CONC 32.6 g/dL (32.4-35.8); MEAN PLATELET VOLUME 9.7 fL (7.4-10.4); PLATELET COUNT 226 x10^3/uL (130-400); RED BLOOD COUNT 3.62 x10^6/uL (3.82-5.3); RED CELL DISTRIBUTION WIDTH 19.4 % (9.6-15.2)
[2021-03-31 03:53] LABS: ANION GAP 4 mmol/L (5-15); CALCIUM 8.6 mg/dL (8.5-10.1); CHLORIDE 102 mmol/L (98-107); CREATININE 0.51 mg/dL (0.55-1.02)
[2021-03-31 04:21] LABS: ANISOCYTOSIS 1+; BAND#(MANUAL) 0.15 x10^3/uL; BANDS%(MANUAL) 1 % (0-7); LYMPH#(MANUAL) 1.06 x10^3/uL (1-3.4); LYMPHS% (MANUAL) 7 % (22-44); METAMYELOCYTES% (MANUAL) 2 % (0-1); MONOS#(MANUAL) 1.52 x10^3/uL (0.3-2.7); MONOS% (MANUAL) 10 % (2-9); REACTIVE LYMPHS % (MANUAL) 2 % (0-0); SEG#(MANUAL) 11.86 x10^3/uL (1.8-6.8); SEGS% (MANUAL) 78 % (42-75)
[2021-03-31 04:22] LABS: <PLATELET ESTIMATE> ADEQUATE; <PLT MORPHOLOGY> NORMAL PLT MORPH; PMNS WITH VACUOLES 1+; POLYCHROMASIA 1+; STOMATOCYTES 1+; TARGET CELLS 1+
[2021-03-31] MEDS: AMPICILLIN/SULBACTAM 3 GM in SODIUM CHLORIDE 0.9% 100 ML IV SCH ×4 (05:56→23:14)
[2021-03-31] MEDS: PANTOPRAZOLE 40 MG IV IVPush SCH (06:00)
[2021-03-31] MEDS: ENOXAPARIN 60 MG/0.6 ML SQ SCH ×2 (07:46→17:53)
[2021-03-31 08:19] VITALS: BP 136/86
[2021-03-31] MEDS: DOCUSATE 50 MG/5 ML, 10ML UDC NG SCH (09:00)
[2021-03-31] MEDS: ASCORBIC ACID 500 MG TABLET PO SCH ×2 (09:47→17:53)
[2021-03-31] MEDS: THIAMINE 100MG TABLET PO SCH (09:48)
[2021-03-31] MEDS: FOLIC ACID 1 MG TABLET PO SCH (09:48)
[2021-03-31] MEDS: MULTIVITS,STRESS FORMULA 1 TABLET PO SCH (09:48)
[2021-03-31] MEDS: CHOLECALCIFEROL 5,000u TAB PO SCH (09:48)
[2021-03-31] MEDS: ZINC SULFATE 220 MG CAPSULE PO SCH (09:48)
[2021-03-31] MEDS: DEXAMETHASONE 4 MG/ML, 1ML IVPush SCH ×2 (09:49→20:45)
[2021-03-31] MEDS: MIDODRINE 5 MG TABLET PO SCH ×3 (09:49→20:45)
[2021-03-31] MEDS: FLUTICASONE/VILANTEROL 100-25MCG/INH INH SCH (12:44)
[2021-03-31 12:48] VITALS: BP 118/79
[2021-03-31 19:41] VITALS: BP 107/69
[2021-04-01] MEDS: metroNIDAZOLE 500 MG TABLET PO SCH ×2 (01:43→08:42)
[2021-04-01 05:05] LABS: MEAN CORPUSCULAR HEMOGLOBIN 35.3 pg (27.0-34.8); MEAN CORPUSCULAR HGB CONC 32.5 g/dL (32.4-35.8); MEAN PLATELET VOLUME 10.2 fL (7.4-10.4); PLATELET COUNT 210 x10^3/uL (130-400); RED BLOOD COUNT 3.24 x10^6/uL (3.82-5.3); RED CELL DISTRIBUTION WIDTH 19.6 % (9.6-15.2)
[2021-04-01 05:27] LABS: ANION GAP 6 mmol/L (5-15); CALCIUM 8.9 mg/dL (8.5-10.1); CHLORIDE 103 mmol/L (98-107)
[2021-04-01 05:29] LABS: CREATININE 0.46 mg/dL (0.55-1.02)
[2021-04-01 05:58] LABS: ANISOCYTOSIS 1+; BAND#(MANUAL) 0.51 x10^3/uL; BANDS%(MANUAL) 4 % (0-7); LYMPH#(MANUAL) 1.02 x10^3/uL (1-3.4); LYMPHS% (MANUAL) 8 % (22-44); METAMYELOCYTES# (MANUAL) 0.13 x10^3/uL (0-0); METAMYELOCYTES% (MANUAL) 1 % (0-1); MONOS% (MANUAL) 7 % (2-9); MYELOCYTES# (MANUAL) 0.13 x10^3/uL (0-0); MYELOCYTES% (MANUAL) 1 % (0-0); SEG#(MANUAL) 10.11 x10^3/uL (1.8-6.8); SEGS% (MANUAL) 79 % (42-75)
[2021-04-01 05:59] LABS: <PLATELET ESTIMATE> ADEQUATE; <PLT MORPHOLOGY> NORMAL PLT MORPH; POLYCHROMASIA 1+; STOMATOCYTES 1+; TARGET CELLS 1+
[2021-04-01] MEDS: PANTOPRAZOLE 40 MG IV IVPush SCH (06:00)
[2021-04-01] MEDS: AMPICILLIN/SULBACTAM 3 GM in SODIUM CHLORIDE 0.9% 100 ML IV SCH ×4 (06:00→23:32)
[2021-04-01] MEDS: FOLIC ACID 1 MG TABLET PO SCH (08:41)
[2021-04-01] MEDS: DEXAMETHASONE 4 MG/ML, 1ML IVPush SCH (08:41)
[2021-04-01] MEDS: DOCUSATE 50 MG/5 ML, 10ML UDC NG SCH (08:41)
[2021-04-01] MEDS: ZINC SULFATE 220 MG CAPSULE PO SCH (08:41)
[2021-04-01] MEDS: MULTIVITS,STRESS FORMULA 1 TABLET PO SCH (08:41)
[2021-04-01] MEDS: ENOXAPARIN 60 MG/0.6 ML SQ SCH ×2 (08:41→20:26)
[2021-04-01] MEDS: MIDODRINE 5 MG TABLET PO SCH ×2 (08:42→20:26)
[2021-04-01] MEDS: THIAMINE 100MG TABLET PO SCH (08:42)
[2021-04-01] MEDS: ASCORBIC ACID 500 MG TABLET PO SCH ×2 (08:42→17:42)
[2021-04-01] MEDS: CHOLECALCIFEROL 5,000u TAB PO SCH (08:42)
[2021-04-01] MEDS: FLUTICASONE/VILANTEROL 100-25MCG/INH INH SCH (08:43)
[2021-04-01 09:11] VITALS: BP 107/66
[2021-04-01 13:24] LABS: INTERNATIONAL NORMALIZED RATIO 1.03 (0.93-1.1)
[2021-04-01 14:35] VITALS: BP 110/73
[2021-04-01] MEDS ORDERED: WARFARIN 5 MG TABLET PO-COUM ONE (17:37)
[2021-04-01] MEDS ORDERED: WARFARIN 10 MG TABLET PO-COUM ONE (18:00)
[2021-04-01] MEDS: HYDROcodone/APAP 5/325 TABLET PO PRN (18:21)
[2021-04-01 20:21] VITALS: BP 114/75
[2021-04-01] MEDS: MELATONIN 5 MG TABLET PO PRN (20:26)
[2021-04-02] MEDS: HYDROcodone/APAP 5/325 TABLET PO PRN ×4 (00:36→21:36)
[2021-04-02 00:37] VITALS: BP 110/75
[2021-04-02] MEDS: AMPICILLIN/SULBACTAM 3 GM in SODIUM CHLORIDE 0.9% 100 ML IV SCH ×4 (06:17→23:21)
[2021-04-02 07:08] LABS: MEAN CORPUSCULAR HEMOGLOBIN 35.3 pg (27.0-34.8); MEAN CORPUSCULAR HGB CONC 33.2 g/dL (32.4-35.8); MEAN PLATELET VOLUME 9.3 fL (7.4-10.4); PLATELET COUNT 221 x10^3/uL (130-400); RED BLOOD COUNT 3.27 x10^6/uL (3.82-5.3)
[2021-04-02] MEDS: PANTOPRAZOLE 40 MG IV IVPush SCH (07:10)
[2021-04-02 07:19] LABS: ANION GAP 6 mmol/L (5-15); CALCIUM 8.7 mg/dL (8.5-10.1); CHLORIDE 103 mmol/L (98-107)
[2021-04-02 07:22] LABS: ALANINE AMINOTRANSFERASE 182 U/L (12-78); ALKALINE PHOSPHATASE 247 U/L (45-117); BILIRUBIN,TOTAL 3.2 mg/dL (0.2-1.0); CREATININE 0.47 mg/dL (0.55-1.02); TOTAL PROTEIN 5.3 g/dL (6.4-8.2)
[2021-04-02 07:38] VITALS: BP 100/62
[2021-04-02 07:44] LABS: LYMPH#(MANUAL) 1.72 x10^3/uL (1-3.4); LYMPHS% (MANUAL) 14 % (22-44); METAMYELOCYTES# (MANUAL) 0.12 x10^3/uL (0-0); METAMYELOCYTES% (MANUAL) 1 % (0-1); MONOS#(MANUAL) 1.72 x10^3/uL (0.3-2.7); MONOS% (MANUAL) 14 % (2-9); MYELOCYTES# (MANUAL) 0.12 x10^3/uL (0-0); MYELOCYTES% (MANUAL) 1 % (0-0); SEG#(MANUAL) 8.61 x10^3/uL (1.8-6.8); SEGS% (MANUAL) 70 % (42-75)
[2021-04-02 07:45] LABS: <PLATELET ESTIMATE> ADEQUATE; <PLT MORPHOLOGY> NORMAL PLT MORPH; ANISOCYTOSIS 1+; POLYCHROMASIA 1+; STOMATOCYTES 1+; TARGET CELLS 1+
[2021-04-02] MEDS: MULTIVITS,STRESS FORMULA 1 TABLET PO SCH (08:40)
[2021-04-02] MEDS: DEXAMETHASONE 4 MG/ML, 1ML IVPush SCH (08:40)
[2021-04-02] MEDS: ASCORBIC ACID 500 MG TABLET PO SCH ×2 (08:40→17:17)
[2021-04-02] MEDS: MIDODRINE 5 MG TABLET PO SCH (08:41)
[2021-04-02] MEDS: ZINC SULFATE 220 MG CAPSULE PO SCH (08:41)
[2021-04-02] MEDS: FOLIC ACID 1 MG TABLET PO SCH (08:41)
[2021-04-02] MEDS: THIAMINE 100MG TABLET PO SCH (08:41)
[2021-04-02] MEDS: FLUTICASONE/VILANTEROL 100-25MCG/INH INH SCH (08:43)
[2021-04-02] MEDS: DOCUSATE 50 MG/5 ML, 10ML UDC NG SCH (08:44)
[2021-04-02] MEDS: ENOXAPARIN 60 MG/0.6 ML SQ SCH ×2 (11:00→23:21)
[2021-04-02] MEDS: WARFARIN HIGH DOSE PROTOCOL XX SCH (11:49)
[2021-04-02 12:20] VITALS: BP 101/64
[2021-04-02 13:48] LABS: INTERNATIONAL NORMALIZED RATIO 1.08 (0.93-1.1); PROTHROMBIN TIME 11.5 Seconds (9.6-11.5)
[2021-04-02] MEDS ORDERED: WARFARIN 7.5 MG TABLET PO-COUM ONE (18:00)
[2021-04-02] MEDS: ERGOCALCIFEROL 50,000 UNIT CAPSULE PO SCH (18:12)
[2021-04-02 19:49] VITALS: BP 104/71
[2021-04-03 01:12] VITALS: BP 104/72
[2021-04-03 05:30] LABS: BASOPHILS % (AUTO) 1 % (0-1); EOSINOPHILS % (AUTO) 1 % (1-7); LYMPHOCYTES % (AUTO) 24 % (22-44); MEAN CORPUSCULAR HEMOGLOBIN 35.3 pg (27.0-34.8); MEAN CORPUSCULAR HGB CONC 32.9 g/dL (32.4-35.8); MEAN PLATELET VOLUME 10.2 fL (7.4-10.4); MONOCYTES % (AUTO) 8 % (2-9); NEUTROPHILS % (AUTO) 68 % (42-75); PLATELET COUNT 203 x10^3/uL (130-400); RED BLOOD COUNT 3.17 x10^6/uL (3.82-5.3); RED CELL DISTRIBUTION WIDTH 19.3 % (9.6-15.2)
[2021-04-03] MEDS: AMPICILLIN/SULBACTAM 3 GM in SODIUM CHLORIDE 0.9% 100 ML IV SCH ×2 (05:35→11:36)
[2021-04-03] MEDS: PANTOPRAZOLE 40 MG IV IVPush SCH (05:35)
[2021-04-03 05:38] LABS: CHLORIDE 102 mmol/L (98-107)
[2021-04-03 05:40] LABS: INTERNATIONAL NORMALIZED RATIO 1.25 (0.93-1.1); PROTHROMBIN TIME 13.2 Seconds (9.6-11.5)
[2021-04-03] MEDS: HYDROcodone/APAP 5/325 TABLET PO PRN (05:45)
[2021-04-03 05:48] LABS: ALANINE AMINOTRANSFERASE 172 U/L (12-78); ALKALINE PHOSPHATASE 241 U/L (45-117); ANION GAP 4 mmol/L (5-15); BILIRUBIN,TOTAL 2.8 mg/dL (0.2-1.0); CALCIUM 8.8 mg/dL (8.5-10.1); CREATININE 0.54 mg/dL (0.55-1.02); TOTAL PROTEIN 5.3 g/dL (6.4-8.2)
[2021-04-03 06:04] LABS: <PLATELET ESTIMATE> ADEQUATE; <PLT MORPHOLOGY> NORMAL PLT MORPH; ANISOCYTOSIS 1+; POLYCHROMASIA 1+; STOMATOCYTES 1+; TARGET CELLS 1+
[2021-04-03 07:18] VITALS: BP 109/74
[2021-04-03] MEDS: ASCORBIC ACID 500 MG TABLET PO SCH (08:00)
[2021-04-03] MEDS ORDERED: MIDODRINE 5 MG TABLET PO SCH (09:00)
[2021-04-03] MEDS: DOCUSATE 50 MG/5 ML, 10ML UDC NG SCH (09:00)
[2021-04-03] MEDS ORDERED: ASCORBIC ACID 250 MG TAB ONE (09:05)
[2021-04-03] MEDS: DEXAMETHASONE 4 MG/ML, 1ML IVPush SCH (09:31)
[2021-04-03] MEDS: THIAMINE 100MG TABLET PO SCH (09:31)
[2021-04-03] MEDS: MULTIVITS,STRESS FORMULA 1 TABLET PO SCH (09:32)
[2021-04-03] MEDS: FOLIC ACID 1 MG TABLET PO SCH (09:32)
[2021-04-03] MEDS: FLUTICASONE/VILANTEROL 100-25MCG/INH INH SCH (09:33)
[2021-04-03] MEDS: ZINC SULFATE 220 MG CAPSULE PO SCH (09:33)
[2021-04-03] MEDS: ENOXAPARIN 60 MG/0.6 ML SQ SCH (11:36)
[2021-04-03] MEDS: WARFARIN HIGH DOSE PROTOCOL XX SCH (12:00)
[2021-04-03 12:22] VITALS: BP 112/73
[2021-04-03] MEDS ORDERED: LORazepam 0.5MG TABLET PO PRN (12:30)
[2021-04-03] MEDS ORDERED: NICO-485 TD (14:47)
[2021-04-03] MEDS ORDERED: ENOX60DI3 SQ (14:47)
[2021-04-03] MEDS ORDERED: MELA5TAB14 PO (14:47)
[2021-04-03] MEDS ORDERED: LORA-445 PO (14:47)
[2021-04-03] MEDS ORDERED: ERGO500017 PO (14:47)
[2021-04-03] MEDS ORDERED: ZINC220C8 PO (14:47)
[2021-04-03] MEDS ORDERED: FLUT1AER INH (14:47)
[2021-04-03] MEDS ORDERED: WARF7.5T46 PO-COUM (14:47)
[2021-04-03] MEDS ORDERED: THIA100T67 PO (14:47)
[2021-04-03] MEDS ORDERED: AMOX1TAB12 PO (14:47)
[2021-04-03] MEDS ORDERED: ASCO500T9 PO (14:47)
[2021-04-03] MEDS ORDERED: LORazepam 1MG TABLET PO SCH (16:00)
[2021-04-03] MEDS ORDERED: WARFARIN 7.5 MG TABLET PO-COUM ONE (18:00)
[2021-04-04] MEDS ORDERED: DEXAMETHASONE 1 MG TABLET PO SCH (09:00)
== END 2021-04-03 15:15 | disposition left against medical advice (07) | DRG 720 ==
LOC: ED 20:00 → EDIP 22:06 → 4EST 22:21 → CCU 03-24 17:26 → 3N 03-31 08:01
PROVIDERS: ADMIT Internal Medicine; ATTEND Internal Medicine
PROC: XW033E5 Introduction of Remdesivir Anti-infective into Peripheral Vein, Percutaneous Approach, New Technology Group 5 (ICD-10-PCS; 2021-03-21)
PROC: 5A1955Z Respiratory Ventilation, Greater than 96 Consecutive Hours (ICD-10-PCS; principal; 2021-03-24)
PROC: 0BH17EZ Insertion of Endotracheal Airway into Trachea, Via Natural or Artificial Opening (ICD-10-PCS; 2021-03-24)
PROC: 02HV33Z Insertion of Infusion Device into Superior Vena Cava, Percutaneous Approach (ICD-10-PCS; 2021-03-25)
PROC: B548ZZA Ultrasonography of Superior Vena Cava, Guidance (ICD-10-PCS; 2021-03-25)
PROC: 0T9B70Z Drainage of Bladder with Drainage Device, Via Natural or Artificial Opening (ICD-10-PCS; 2021-03-25)
PROC: 0BP1XDZ Removal of Intraluminal Device from Trachea, External Approach (ICD-10-PCS; 2021-04-01)
DX: A41.1 Sepsis due to other specified staphylococcus (principal); J96.01 Acute respiratory failure with hypoxia; J12.82 Pneumonia due to coronavirus disease 2019; F10.221 Alcohol dependence with intoxication delirium; E46 Unspecified protein-calorie malnutrition; U07.1 COVID-19; D69.6 Thrombocytopenia, unspecified; J15.211 Pneumonia due to Methicillin susceptible Staphylococcus aureus; K70.0 Alcoholic fatty liver; Z68.43 Body mass index [BMI] 50.0-59.9, adult; K21.9 Gastro-esophageal reflux disease without esophagitis; E87.6 Hypokalemia; I89.0 Lymphedema, not elsewhere classified; R74.01 Elevation of levels of liver transaminase levels; E66.2 Morbid (severe) obesity with alveolar hypoventilation; D75.89 Other specified diseases of blood and blood-forming organs; E27.40 Unspecified adrenocortical insufficiency; E55.9 Vitamin D deficiency, unspecified; Z53.29 Procedure and treatment not carried out because of patient's decision for other reasons; F41.9 Anxiety disorder, unspecified; K80.20 Calculus of gallbladder without cholecystitis without obstruction; I25.10 Atherosclerotic heart disease of native coronary artery without angina pectoris; N39.0 Urinary tract infection, site not specified; F10.231 Alcohol dependence with withdrawal delirium; Y90.9 Presence of alcohol in blood, level not specified; K70.9 Alcoholic liver disease, unspecified; K76.0 Fatty (change of) liver, not elsewhere classified; N25.81 Secondary hyperparathyroidism of renal origin; Z79.01 Long term (current) use of anticoagulants; Z79.899 Other long term (current) drug therapy; Z86.711 Personal history of pulmonary embolism; Z86.718 Personal history of other venous thrombosis and embolism; Z87.891 Personal history of nicotine dependence; Z99.11 Dependence on respirator [ventilator] status
CPT/HCPCS: 36415; 36573; 36600; 70450; 71045; 71275; 76700; 80048; 80053; 80076; 81001; 82306; 82533; 82728; 82803; 82962; 83605; 83615; 83735; 83880; 83970; 84100; 84145; 84478; 84484; 85025; 85379; 85610; 85651; 86140; 87040; 87070; 87077; 87081; 87086; 87186; 87205; 93005; 93308; 93321; 93325; 94003; 94150; 94660; 94690; 96372; 96374; 96375; G0378; J0295; J0696; J1100; J1650; J1940; J2250; J2704; Q9967; U0005; C1751; C9113; J2370; J2920; J2930; J3420; J3475; J7040; J7050; U0003

== ENCOUNTER 2021-04-19 18:24 | Emergency (ER) | payer MEDICAID ==
[~2021-04-19 18:24] MED LIST changes: +ASCO500T9 PO; +ENOX60DI3 SQ; +ERGO500017 PO; +FLUT1AER INH; +LORA-445 PO; +MELA5TAB14 PO; +WARF7.5T46 PO-COUM; +ZINC220C8 PO
[2021-04-19 19:20] LABS: BASOPHILS % (AUTO) 1 % (0-1); EOSINOPHILS % (AUTO) 5 % (1-7); LYMPHOCYTES % (AUTO) 22 % (22-44); MEAN CORPUSCULAR HEMOGLOBIN 35.2 pg (27.0-34.8); MEAN PLATELET VOLUME 7.7 fL (7.4-10.4); MONOCYTES % (AUTO) 4 % (2-9); NEUTROPHILS % (AUTO) 68 % (42-75); PLATELET COUNT 371 x10^3/uL (130-400); RED BLOOD COUNT 3.59 x10^6/uL (3.82-5.3); RED CELL DISTRIBUTION WIDTH 17.3 % (9.6-15.2)
[2021-04-19 19:31] LABS: ALBUMIN 2.1 g/dL (3.4-5.0); ANION GAP 5 mmol/L (5-15); CALCIUM 8.2 mg/dL (8.5-10.1); CHLORIDE 107 mmol/L (98-107); CREATININE 0.42 mg/dL (0.55-1.02)
--- NOTE | 2021-04-19 20:10 | NUR ---
pt to room from lobby
--- NOTE | 2021-04-19 20:21 | NUR ---
PT C/O OF WEAKNESS IN LEGS AND PT REPORTS SHE CANNOT WALK. PT WAS HERE A FEW WEEKS AGO IN THE ICU FOR COVID19 ATTACHED TO MONITORS. NAVARRO TONG. BED IN LOW, RAILS ENGAGED. CALL LIGHT ON LAP.
[2021-04-19 22:14] VITALS: BP 125/73
--- NOTE | 2021-04-19 22:16 | NUR ---
Patient/Caregiver given discharge instructions and they have confirmed that they understand the instructions. Patient ambulatory WITH FWW with steady gait. NAD, all questions answered appropriately, denies additional needs at this time. No personal belongings left in room after discharge. PT AMBULATED TO BATHROOM PRIOR TO DC WITH FWW WITH STEADY GAIT STATING IT FEELS GOOD TO WALK.
== END 2021-04-19 22:26 | disposition home or self-care (01) ==
LOC: ED 18:45
DX: J18.9 Pneumonia, unspecified organism (principal); R53.1 Weakness; R26.2 Difficulty in walking, not elsewhere classified; Z86.718 Personal history of other venous thrombosis and embolism
CPT/HCPCS: 36415; 80048; 82040; 85025; 99283